=== PATIENT | female | born 1955 | race Caucasian/White ===

== ENCOUNTER 2017-12-04 08:32 | Day surgery (SDC) | payer OTHER ==
[2017-12-04] MEDS ORDERED: MIDAZOLAM 1 MG/ML 2 ML INJ ×2 (10:35)
[2017-12-04] MEDS ORDERED: FENTAnyl 50 MCG/ML VIAL (10:36)
== END 2017-12-04 11:31 | disposition home or self-care (01) ==
LOC: GIL 08:32
DX: Z12.11 Encounter for screening for malignant neoplasm of colon (principal); K64.8 Other hemorrhoids; I10 Essential (primary) hypertension
CPT/HCPCS: 45378